=== PATIENT | female | born 1960 | race Caucasian/White ===

== ENCOUNTER 2018-11-07 08:27 | Inpatient (IN) ==
--- NOTE | 2018-10-23 15:20 | PAT Medication Instructions ---
Medication Instructions Date of Service October 23, 2018 Home Medications biotin 1 tab PO QAM cholecalciferol (vitamin D3) 2 tab PO QAM citalopram [Celexa] 20 mg PO QAM esomeprazole magnesium [Nexium] 40 mg PO QAM hydrochlorothiazide 25 mg PO QAM hydroxyzine HCl 25 mg PO QID PRN levothyroxine [Synthroid] 125 mcg PO QAM STOP taking 2 weeks before surgery (or as soon as possible if surgery is within 2 weeks) biotin 1 tab PO QAM DO NOT take the morning of surgery cholecalciferol (vitamin D3) 2 tab PO QAM hydrochlorothiazide 25 mg PO QAM Take morning of surgery With a small sip of water, OTHERWISE NOTHING TO EAT OR DRINK AFTER MIDNIGHT: citalopram [Celexa] 20 mg PO QAM esomeprazole magnesium [Nexium] 40 mg PO QAM hydroxyzine HCl 25 mg PO QID PRN (if needed) levothyroxine [Synthroid] 125 mcg PO QAM Other Notes If you have any questions please call us at [phone] or [phone] or [phone] or [phone]
--- NOTE | 2018-10-24 13:37 | Anesthesiology Consultation ---
Date of Service October 24, 2018 Assessment & Plan (1) Encounter for pre-operative examination: Plan: - PCP= 10/30/18= "appropriate risk for right knee surgery." Chart Review Chart Review: Acceptable Risk for Surgery and Patient seen in Pre Admission Testing Teaching & Discussion Pre-Anesthesia Teaching/Discussion Notes: Instructed NPO after midnight before surgery,except medications with 15 cc of water. Medication instructions provided according to the PAT guidelines. History Surgery Operation Date: 11/07/18 09:40 Proposed Procedures p Right Total Knee Revision Arthroplasty versus Articulated Cement Spacer - Reji Brenner MD Height/Weight Height: 5 ft 7 in Weight: 105.7 kg Allergies Allergy/AdvReac Type Severity Reaction Status Date / Time Penicillins Allergy Unknown RASH Verified 10/18/18 14:36 Sulfa (Sulfonamide Allergy Unknown RASH Verified 10/18/18 14:36 Antibiotics) Medications Home Medications Medication Instructions Recorded Confirmed Last Taken biotin 1 tab PO QAM 10/18/18 10/18/18 Unknown cholecalciferol (vitamin D3) 2 tab PO QAM 10/18/18 10/18/18 Unknown [Vitamin D3] citalopram [Celexa] 20 mg PO QAM 10/18/18 10/18/18 Unknown esomeprazole magnesium [Nexium] 40 mg PO QAM 10/18/18 10/18/18 Unknown hydrochlorothiazide 25 mg PO QAM 10/18/18 10/18/18 Unknown hydroxyzine HCl 25 mg PO QID PRN 10/18/18 10/18/18 Unknown levothyroxine [Synthroid] 125 mcg PO QAM 10/18/18 10/18/18 Unknown Past Medical History Medical History Anxiety Arthritis Bradycardia CHRONIC; ASYMPTOMATIC Depression GERD (gastroesophageal reflux disease) CONTROLLED Hypertension Hypothyroidism Obesity Past Surgical History Surgical History History of appendectomy History of total knee replacement RIGHT TKA= 04/28/15= SAB + PNB AT [facility] Hx of section x 3 Hx of colonoscopy Patient states emotional/depressed for the 3 weeks following prior right TKA. Past Anesthesia History No Hx of Anesthesia Complications and No Family Hx of Anesthesia Complications History of PONV No Motion Sickness Screening History of Motion Sickness: Yes (OCCASIONAL) Social History Smoking Status: Never smoker Do You Dip or Chew Tobacco: No Hx Alcohol Use: Yes Alcohol type: wine alcohol intake frequency: holidays/special occasions only Hx Substance Use: No substance use type: does not use Exercise / Class Metabolic Activity II 4-5 Yardwork/Stairs/Walk up hill Review of Systems Reflux controlled. Knee pain. Patient denies chest pain, shortness of breath, dyspnea on exertion,cough, wheezing, palpitations. Physical Exam Vital Signs VITALS BP 122/78 P 57 TEMP 97.8 SP02 96%RA RESP 18 Full neck and c-spine range of motion. Full TMJ range of motion. TMD 3 finger breaths Mallampati Score 2 Dentition: intact, caps on sides Lungs: clear throughout to auscultation Cardiac: regular rate and rhythm, no murmurs noted Spine: normal Carotid arteries: negative bruit Extremities: no edema Testing Electrocardiogram Date: 10/24/18 Findings: + SB @ (50) Chest X-Ray Date: 10/24/18 Findings: + NAD and + atherosclerosis of thoracic aorta Echocardiogram Date: 08/15/13 EF 55-60%. No RWMA. Mild AV thickening. No significant valvular disease. Diastolic filling pattern indicates impaired relaxation. Stress Test Date: 03/07/17 Type: exercise Exercise treadmill testing negative for angina pectoris or EKG evidence for myocardial ischemia. Exercise capacity good. 10.1 METS. 94%MPHR. Laboratory Results 10/24/18 13:51 10/24/18 13:51 Blood Type A Positive 10/24/18 13:51 Antibody Screen NEGATIVE 10/24/18 13:51 PT 10.6 Seconds (9.0-12.0) 10/24/18 13:51 INR 1.1 (0.9-1.1) 10/24/18 13:51 APTT 27.0 Seconds (21.0-31.0) 10/24/18 13:51 Hemoglobin A1c 5.2 % (4.5-5.6) 10/24/18 13:51 Urine Color Yellow 10/24/18 Unknown Urine Appearance Clear (Clear) 10/24/18 Unknown Urine pH 5.0 (4.5-7.5) 10/24/18 Unknown Ur Specific Elmer 1.017 (1.000-1.030) 10/24/18 Unknown Urine Protein Negative (Negative) 10/24/18 Unknown Urine Glucose (UA) Negative (Negative) 10/24/18 Unknown Urine Ketones Negative (Negative) 10/24/18 Unknown Urine Nitrite Negative (Negative) 10/24/18 Unknown Ur Leukocyte Esterase Negative (Negative) 10/24/18 Unknown 10/24/18 Unknown Urine Culture - Final Urine,Clean Catch No growth - less than 1,000 colonies/mL.
--- NOTE | 2018-10-24 14:13 | XRay Report ---
XR chest Pre-admission PA/Lat CLINICAL HISTORY: 58 years-old Female presenting with preoperative assessment. TECHNIQUE: PA and lateral views of the chest were obtained. COMPARISON: None. FINDINGS: Atherosclerosis of the aortic arch. Cardiac silhouette top normal in size. Lungs and pleural spaces c lear. Osseous structures normal. Upper abdomen normal. IMPRESSION: 1. No acute cardiopulmonary disease. Electronically signed by: Luke Topete M.D. 10/24/2018 2:11 PM
[2018-10-24 14:18] LABS: Basophils # (auto) 0.04 K/uL (0-0.2); Basophils % (auto) 0.5 %; Eosinophils # (auto) 0.24 K/uL (0-0.5); Eosinophils % (auto) 2.9 %; Hematocrit (blood only) 39.2 % (37-47); Hemoglobin 13.3 g/dL (12.0-16.0); Immature Granulocytes # (auto) 0.02 K/uL (0.00-0.02); Immature Granulocytes % (auto) 0.2 %; Lymphocytes # (auto) 2.62 K/uL (1.2-3.4); Lymphocytes % (auto) 31.4 %; Mean Corpuscular Hgb Conc 33.9 g/dL (32-36); Mean Corpuscular Volume 84.7 fL (80-100); Mean Platelet Volume 10.3 fL (7.4-10.4); Monocytes # (auto) 0.44 K/uL (0.11-0.59); Monocytes % (auto) 5.3 %; Neutrophils # (auto) 4.98 K/uL (1.4-6.5); Neutrophils % (auto) 59.7 %; Platelet Count 294 K/uL (130-400); RDW Coefficient of Variation 12.8 % (11.5-14.5); RDW Standard Deviation 39.2 fL (36.4-46.3); Red Blood Count 4.63 M/uL (4.2-5.4); White Blood Count 8.34 K/uL (4.8-10.8)
[2018-10-24 14:19] LABS: Estimated Average Glucose 103 mg/dl
[2018-10-24 14:24] LABS: BUN Creatinine Ratio 29.2 (10-20); Calcium 9.6 mg/dl (8.5-10.1); Creatinine Clr Calc Pharmacy 105.2 ml/min; Est GFR (African American) 106.2; Est GFR (Non-African American) 91.7; Potassium 3.6 mmol/L (3.5-5.1)
[2018-10-24 14:28] LABS: INR 1.1 (0.9-1.1); Prothrombin Time 10.6 Seconds (9.0-12.0)
[2018-10-24 14:46] LABS: Appearance Urine Clear (Clear); Bilirubin Urine Negative (Negative); Color Urine Yellow; Glucose Urine UA Negative (Negative); Ketones Urine Negative (Negative); Leukocyte Esterase Urine Negative (Negative); Nitrite Urine Negative (Negative); Protein Urine Negative (Negative); Specific Gravity Urine 1.017 (1.000-1.030); Urobilinogen Urine Negative (Negative)
--- NOTE | 2018-11-06 09:39 | History and Physical Report ---
DATE OF ADMISSION: 11/07/2018 CHIEF COMPLAINT: Right knee pain status post previous total knee arthroplasty. HISTORY OF PRESENT ILLNESS: The patient is a 58-year-old female approximately 3 years status post right total knee arthroplasty. She presented recently for increasing pain about the right knee. X-rays were concerning about possible loosening, particularly about the tibial component. She has some blood work, which showed a mildly elevated CRP. She had an aspiration, which was negative. She has a bone scan, which was suggestive of possible loosening about the tibial component. She is now scheduled for right total knee tibial component revision versus complete revision versus articulated antibiotic spacer. PAST MEDICAL HISTORY: Depression, hypothyroidism, acid reflux. PAST SURGICAL HISTORY: Right knee as above, x3. MEDICATIONS: Synthroid 125 mcg daily, hydrochlorothiazide 25 mg daily, esomeprazole 40 mg daily, citalopram 20 mg daily, hydroxyzine HCl 25 mg p.r.n., biotin 5000 mcg, vitamin D 2000 international units. ALLERGIES: PENICILLIN AND SULFA. SOCIAL HISTORY AND REVIEW OF SYSTEMS: Noncontributory. PHYSICAL EXAMINATION: GENERAL: Well-nourished, well-developed female, who appears stated age. HEENT: Normocephalic, atraumatic. Extraocular movements intact. Oropharynx pink and moist. NECK: Supple without adenopathy. LUNGS: Clear to auscultation bilaterally. HEART: Regular rate and rhythm. ABDOMEN: Soft, nontender, nondistended. EXTREMITIES: The upper extremities are within normal limits. The right knee has a neutral alignment. She has a well-healed midline incision from her previous arthroplasty. Her range of motion is from 0-120 degrees. X-RAYS: X-rays were reviewed. She has a Praneeth type knee in place. It is well aligned. There appears to be osteolysis, particularly about the tibial component. No obvious changes about the femoral or patellar components. Her bone scan was reviewed and shows some increased activity, particularly about the tibial component suggestive of loosening. ASSESSMENT: Painful right total knee arthroplasty, aseptic loosening, lesser chance of infectious process. PLAN: Risks versus benefits were discussed, consent was obtained. We will proceed with right total knee revision tibial component versus complete knee revision versus articulated antibiotic spacer as indicated.
[~2018-11-07 08:27] MED LIST: ACETAMINOPHEN 500 MG TAB PO SCH; BUPIVACAINE 0.5 % 5 MG/1 ML PF 10ML VIAL ONE; CLINDAMYCIN 600 MG/54 ML BAG IV SCH; FAMOTIDINE 20 MG TAB PO SCH; GABAPENTIN 300 MG x 2 PO SCH; ROPIVACAINE 0.5% 5 MG/ML 30 ML VIAL ONE; ROPIVACAINE 0.5% HCL/PF 150 MG, BUPIVACAINE 0.5% MPF 30 ML, EPINEPHrine 30MG/30ML (OR U... INFIL SCH; TRANEXAMIC ACID 1,000 MG **IV Intra-op IV SCH; TRANEXAMIC ACID 1,000 MG **IV Pre-op IV SCH; dexAMETHasone 4 MG TAB PO SCH
[2018-11-07] MEDS ORDERED: fentaNYL citrate 100 MCG/2 ML VIAL ONE (09:23)
[2018-11-07] MEDS ORDERED: MIDAZOLAM HCL 1 MG/ML 2ML VIAL ONE ×3 (09:23→11:07)
[2018-11-07] MEDS ORDERED: LIDOCAINE HCL 2% 2 ML VIAL/AMP(20MG/ML) INFIL ONE (09:24)
[2018-11-07] MEDS ORDERED: PROPOFOL IV EMULSION 10 MG/ML 20 ML VIAL IV ONE ×3 (09:24→12:39)
[2018-11-07] MEDS ORDERED: ONDANSETRON INJ 2 MG/ML 2 ML VIAL ONE (09:24)
[2018-11-07] MEDS: LR 500ML BOLUS, THEN 15ML/HR IV SCH ×3 (09:31→18:51)
--- NOTE | 2018-11-07 09:52 | History & Physical Bridge Note ---
Date of Service November 07, 2018 History & Physical Bridge Note I have examined the patient, reviewed the History & Physical and in the interval since the performance of the History & Physical I have noted the following changes of clinical significance: no changes noted
[2018-11-07] MEDS ORDERED: fentaNYL citrate 100 MCG/2 ML VIAL IV PRN (10:08)
[2018-11-07] MEDS ORDERED: ePHEDrine sulfate 50 MG/ML AMP IV PRN (10:08)
[2018-11-07] MEDS ORDERED: ATROPINE SULFATE 0.1 MG/ML 10ML SYR IV PRN (10:08)
[2018-11-07] MEDS ORDERED: ONDANSETRON INJ 2 MG/ML 2 ML VIAL IV PRN ×2 (10:08→15:17)
[2018-11-07] MEDS ORDERED: ORTHO JOINT ANESTHETIC ONE (10:12)
[2018-11-07] MEDS ORDERED: BACITRACIN INJ 50,000 UNIT VIAL ONE (10:12)
[2018-11-07] MEDS ORDERED: POVIDONE-IODINE OP SOLN 30 ML BTL ONE (10:12)
--- NOTE | 2018-11-07 13:56 | XRay Report ---
XR knee RT 2V routine HISTORY: 58 years-old Female Surgical Post Op right knee total joint arthroplasty. History of degene rative joint disease. COMPARISON: Knee radiographs 04/28/2015 TECHNIQUE: 2 views of the right knee FINDINGS: Status post revision of right knee total joint arthroplasty with placement of elongated tibial stem. Satisfactory alignment. No acute fracture or retained foreign body. Anterior midline skin miles are noted with expected postsurgical soft tissue swelling and deep tissue air. Surgical drainage cathete r noted. IMPRESSION: Right knee total joint arthroplasty demonstrates satisfactory alignment. The above report was generated using voice recognition software. It may contain grammatical, syntax o r spelling errors. Electronically signed by: Geovany Chiu M.D. 11/07/2018 1:54 PM
--- NOTE | 2018-11-07 14:56 | Anesthesiology Progress Note ---
Date of Service November 07, 2018 Anesthesia Post Procedure Vital Signs Vital Signs: Temp Pulse Pulse Resp BP Pulse Ox 11/07/18 14:50 37.0 C 68 19 121/81 97 11/07/18 14:40 37.0 C 68 19 121/81 97 11/07/18 14:30 61 14 123/82 96 11/07/18 14:20 67 14 120/92 98 11/07/18 14:10 60 16 120/83 95 11/07/18 14:00 65 15 126/86 97 11/07/18 13:50 65 17 136/85 97 11/07/18 13:40 70 15 133/75 95 11/07/18 13:30 70 20 125/84 98 11/07/18 13:23 37.0 C 74 17 128/77 99 11/07/18 09:29 36.7 C 60 18 137/78 94 Notes Mental Status: alert / awake / arousable Patient Amnestic to Procedure: Yes Nausea / Vomiting: adequately controlled Pain: adequately controlled Airway Patency, RR, SpO2: stable & adequate BP & HR: stable & adequate Hydration State: stable & adequate Neuraxial Anesthesia: was administered and sensory block is resolving Anesthetic Complications: no major complications apparent and Pt Satisfied with anesthetic care
[2018-11-07] MEDS ORDERED: MoRPHine SULFATE 2 MG/ML CARP IV PRN (15:17)
[2018-11-07] MEDS ORDERED: ALUMINUM/MAGNESIUM SUSP 30 ML UDC PO PRN (15:17)
[2018-11-07] MEDS ORDERED: MAGNESIUM HYDROXIDE SUSP 30 ML UDC PO PRN (15:17)
[2018-11-07] MEDS: CLINDAMYCIN 600 MG in DEXTROSE 5% 50 ML IV SCH (18:36)
[2018-11-07] MEDS: ACETAMINOPHEN 500 MG TAB PO SCH (20:59)
[2018-11-07] MEDS: SODIUM CHLORIDE 0.9% 1000ML 1,000 ML IV SCH (20:59)
[2018-11-07] MEDS: SENNA 8.6 MG TAB PO SCH (20:59)
[2018-11-07] MEDS: ASPIRIN 81 MG ECTAB PO SCH (20:59)
[2018-11-07] MEDS: DOCUSATE SODIUM 100 MG CAP PO SCH (20:59)
[2018-11-07] MEDS: OXYCODONE HCL IR 5 MG TAB (IMMEDIATE RELEASE) PO PRN (23:22)
[2018-11-08] MEDS: CLINDAMYCIN 600 MG in DEXTROSE 5% 50 ML IV SCH (03:19)
[2018-11-08] MEDS: LEVOTHYROXINE SODIUM 125 MCG TABLET PO SCH (05:18)
[2018-11-08] MEDS: ACETAMINOPHEN 500 MG TAB PO SCH ×3 (05:18→21:05)
[2018-11-08] MEDS: SODIUM CHLORIDE 0.9% 1000ML 1,000 ML IV SCH (05:21)
[2018-11-08 05:53] LABS: Hematocrit (blood only) 36.6 % (37-47); Hemoglobin 12.5 g/dL (12.0-16.0); Mean Corpuscular Hgb Conc 34.2 g/dL (32-36); Mean Corpuscular Volume 84.7 fL (80-100); Mean Platelet Volume 10.8 fL (7.4-10.4); Platelet Count 292 K/uL (130-400); RDW Coefficient of Variation 12.6 % (11.5-14.5); RDW Standard Deviation 38.6 fL (36.4-46.3); Red Blood Count 4.32 M/uL (4.2-5.4); White Blood Count 12.85 K/uL (4.8-10.8)
[2018-11-08 06:09] LABS: BUN Creatinine Ratio 26.5 (10-20); Calcium 8.7 mg/dl (8.5-10.1); Creatinine Clr Calc Pharmacy 92.4 ml/min; Est GFR (African American) 90.8; Est GFR (Non-African American) 78.3; Potassium 4.2 mmol/L (3.5-5.1)
--- NOTE | 2018-11-08 07:36 | Orthopedic Progress Note ---
Date of Service November 08, 2018 Assessment & Plan (1) Status post revision of total replacement of right knee: 58 yo female stable POD #1 s/p revision tibial component right TKA 1. Med management 2. DVT prophylaxis- ASA, SCDs 3. PT/OT 4. D/C planning- home w/ HH Subjective Pt resting comfortably in bed, pain controlled, denies complaints Physical Exam 2 Vital Signs (Past 24 Hours): Last Vital Signs Temp 36.7 C 11/08/18 07:09 Pulse 67 11/08/18 07:09 Resp 18 11/08/18 07:09 BP 118/78 11/08/18 07:09 Pulse Ox 92 11/08/18 07:09 Physical Exam: Toes mobile, N/V/I, dressing and drain in place Results & Data Laboratory Results 11/08/18 11/08/18 Range/Units 05:28 05:28 WBC 12.85 H (4.8-10.8) K/uL RBC 4.32 (4.2-5.4) M/uL Hgb 12.5 (12.0-16.0) g/dL Hct 36.6 L (37-47) % MCV 84.7 (80-100) fL MCH 28.9 (25-34) pg MCHC 34.2 (32-36) g/dL RDW Std Deviation 38.6 (36.4-46.3) fL RDW Coeff of Pipe 12.6 (11.5-14.5) % Plt Count 292 (130-400) K/uL MPV 10.8 H (7.4-10.4) fL Sodium 137 (136-145) mmol/L Potassium 4.2 (3.5-5.1) mmol/L Chloride 108 H (98-107) mmol/L Carbon Dioxide 26 (21-32) mmol/L Anion Gap 3.0 (3-11) BUN 22 H (7-18) mg/dl Creatinine 0.82 (0.6-1.2) mg/dl Est Cr Clr Drug Dosing 92.4 ml/min Est GFR ( Amer) 90.8 Est GFR (Non-Af Amer) 78.3 BUN/Creatinine Ratio 26.5 H (10-20) Glucose 125 H (70-99) mg/dl Calcium 8.7 (8.5-10.1) mg/dl
--- NOTE | 2018-11-08 07:49 | Anesthesiology Progress Note ---
Date of Service November 08, 2018 Anesthesia Post Procedure Vital Signs Vital Signs: Temp Pulse Pulse Pulse Resp BP Pulse Ox 11/08/18 07:09 36.7 C 67 18 118/78 92 11/08/18 03:06 36.7 C 79 16 113/71 93 11/08/18 00:24 36.7 C 67 16 120/75 93 11/07/18 18:00 36.8 C 66 22 118/80 97 11/07/18 17:09 36.7 C 61 16 111/73 95 11/07/18 16:08 36.7 C 59 L 16 122/86 99 11/07/18 15:38 36.6 C 58 L 14 125/85 97 11/07/18 14:50 63 16 116/77 97 11/07/18 14:40 37.0 C 68 19 121/81 97 11/07/18 14:30 61 14 123/82 96 11/07/18 14:20 67 14 120/92 98 11/07/18 14:10 60 16 120/83 95 11/07/18 14:00 65 15 126/86 97 11/07/18 13:50 65 17 136/85 97 11/07/18 13:40 70 15 133/75 95 11/07/18 13:30 70 20 125/84 98 11/07/18 13:23 37.0 C 74 17 128/77 99 11/07/18 09:29 36.7 C 60 18 137/78 94 Pain Intensity Right Knee: Pain Intensity: 2 Notes Mental Status: alert / awake / arousable and participated in evaluation Patient Amnestic to Procedure: Yes Nausea / Vomiting: adequately controlled Pain: adequately controlled Airway Patency, RR, SpO2: stable & adequate BP & HR: stable & adequate Hydration State: stable & adequate Neuraxial Anesthesia: was administered and sensory block resolved Anesthetic Complications: no major complications apparent and Pt Satisfied with anesthetic care
[2018-11-08] MEDS: DOCUSATE SODIUM 100 MG CAP PO SCH ×2 (08:19→21:05)
[2018-11-08] MEDS: CITALOPRAM 20 MG TAB PO SCH (08:19)
[2018-11-08] MEDS: ASPIRIN 81 MG ECTAB PO SCH ×2 (08:19→21:05)
[2018-11-08] MEDS: PANTOprazole 40 MG TAB PO SCH (08:19)
[2018-11-08] MEDS: MULTIVITAMIN TAB PO SCH (08:19)
[2018-11-08] MEDS: hydroCHLOROthiazide 25 MG TAB PO SCH (08:19)
[2018-11-08] MEDS: OXYCODONE HCL IR 5 MG TAB (IMMEDIATE RELEASE) PO PRN ×4 (10:39→23:25)
[2018-11-08] MEDS: SENNA 8.6 MG TAB PO SCH (21:05)
[2018-11-09] MEDS: OXYCODONE HCL IR 5 MG TAB (IMMEDIATE RELEASE) PO PRN ×2 (05:24→12:02)
[2018-11-09] MEDS: ACETAMINOPHEN 500 MG TAB PO SCH (05:25)
[2018-11-09] MEDS: LEVOTHYROXINE SODIUM 125 MCG TABLET PO SCH (05:26)
[2018-11-09] MEDS: MULTIVITAMIN TAB PO SCH (07:30)
[2018-11-09] MEDS: ASPIRIN 81 MG ECTAB PO SCH (07:30)
[2018-11-09] MEDS: DOCUSATE SODIUM 100 MG CAP PO SCH (07:30)
[2018-11-09] MEDS: CITALOPRAM 20 MG TAB PO SCH (07:30)
[2018-11-09] MEDS: PANTOprazole 40 MG TAB PO SCH (07:30)
[2018-11-09] MEDS: hydroCHLOROthiazide 25 MG TAB PO SCH ×2 (07:30→12:32)
--- NOTE | 2018-11-09 10:15 | Orthopedic Progress Note ---
Date of Service November 09, 2018 Assessment & Plan (1) Status post revision of total replacement of right knee: 58 yo female stable POD #2 s/p revision tibial component right TKA 1. Med management 2. DVT prophylaxis- ASA, SCDs 3. PT/OT 4. D/C planning- home w/ HH today Subjective pt sitting in chair comfortably. No N/V, Dizziness, chest pain, SOB, calf pain, pain well controlled Physical Exam 2 Vital Signs (Past 24 Hours): Last Vital Signs Temp 36.7 C 11/09/18 07:04 Pulse 67 11/09/18 07:04 Resp 18 11/09/18 07:04 BP 135/83 11/09/18 07:04 Pulse Ox 96 11/09/18 07:04 Physical Exam: Toes mobile, NVI. Calves soft nontender. Dressing in place. Prevena
--- NOTE | 2018-11-20 15:10 | Discharge Summary ---
CHIEF COMPLAINT: Right knee pain status post total knee arthroplasty. Please see complete history and physical examination. HOSPITAL COURSE: The patient underwent a right total knee tibial component revision without complication. She tolerated the procedure well and was discharged to recovery room in stable condition. Her postop course was relatively uneventful. Her postoperative pain was reasonably well controlled with a combination of spinal anesthesia, adductor canal block, intraoperative joint injection, IV, and oral pain medications. She was started on aspirin for DVT prophylaxis. She also utilized MARSHALL stockings and SCDs for additional prophylaxis. Her H and H was stable and did not require transfusion. Her surgical drain and dressings were changed on postoperative day 2. Her new surgical dressing will remain in place for approximately 7 days postoperative. She tolerated postop physical therapy reasonably well where she was ambulating and transferring appropriately. She was discharged home on postoperative day 2. She will continue her physical therapy as an outpatient. She will continue her aspirin for DVT prophylaxis and follow up in our office in approximately 10-14 days for initial postop evaluation.
--- NOTE | 2018-12-02 08:02 | Operative Report ---
DATE OF OPERATION: 11/07/2018 PREOPERATIVE DIAGNOSIS: Osteoarthritis, right knee. POSTOPERATIVE DIAGNOSIS: Osteoarthritis, right knee. PROCEDURE: Right total knee arthroplasty. SURGEON: Reji Brenner MD CARTOGRAPHY TEACHER: YANETH Ramachandran ANESTHESIA: Spinal. COMPLICATIONS: None. OPERATION AND FINDINGS: Following induction of spinal anesthesia, the patient's right leg was prepped and draped in the usual sterile manner. Limb was exsanguinated with an Esmarch bandage and tourniquet was inflated to 350 mmHg. A longitudinal incision was made anteriorly. Subcutaneous tissue was sharply dissected. Electrocautery was used for hemostasis. Prepatellar bursa was incised and median parapatellar incision was performed. Patella was everted and the knee was flexed. Fat pad was removed to aid in visualization and the anterior and posterior cruciate ligaments were removed. The medial face of the tibia was cleared of soft tissue first with a Bovie and a Gusman elevator. This tissue was retracted posteriorly using a blunt Hohmann. A Lanza retractor was used to expose the synovium above on the anterior aspect of the femur and this was removed down to bone. The PSI guide was placed on the distal femur and two pins were placed anteriorly and kept in position and two additional pins were placed distally and removed. The distal femoral cutting block was placed in position and the distal femoral cut was used in the +0 setting. Next, the cutting block was removed and the femoral size 4 block was placed in the distal end of the femur. Care was taken to ensure appropriate external rotation and feeler gauge was used to ensure no notching would occur. The femoral block was centered on the distal femur and in the medial and lateral direction and was fixed using two bone screws. The gold pins were then removed. The oscillating saw was used to create the bone cuts and the distal femoral cutting block was removed and the reciprocating saw was used to further trim the femoral cuts as well as a deep in the area for the trochlear groove. Next, posterior condyle remnants were removed. Following this, a meniscal clamp and knife were utilized to remove the anterior portion of both medial and lateral meniscus. The proximal tibia PSI guide was placed into position and the proximal tibial cutting guide was screwed into position. The extra medullary alignment guide was utilized to ensure appropriate alignment. The proximal tibia was cut and the proximal tibial cutting block was removed and this bone fragment was removed. The appropriate guide was used to perform the notch cut on the distal femur and a lamina aluminum boats assembler and a cochlear knife were utilized to finish both medial and lateral meniscectomies to remove any remnants of the posterior or anterior cruciate ligaments. Following this, the distal femoral component was impacted into position and blunt Scottie was used to sublux the tibia anteriorly. The proximal tibia was sized and a size 3 tibial tray was chosen as the size to be used. This was put into position and appropriate external rotation and a double check with extramedullary alignment guide was performed. The canal for the tibial stem was prepared first with a 17 mm drill and then the punch and a mallet and the trial tibial poly was placed. A tibial poly 11, size 17 was chosen the size to be used. It was brought to extension and the patella was prepared with the patellar reamer. A tibial stem 11 mm component was chosen the size to be used. The trial component was placed and knee was taken through a full range of motion and there was found to be no lateral subluxation of the tibia. No lateral release was required. The trials were all removed. The final components were obtained and assembled. Cement was mixed. The knee was thoroughly irrigated and the ortho mix was injected about the knee joint. The final components were cemented into position. After thoroughly suctioning and drying the bone ends, all excess cement was removed. The knee was held in extension while the cement hardened. The wound was irrigated and closed over a Hemovac drain. A #1 Vicryl was used to close the extensor mechanism. Subcutaneous tissues closed using 0 Dexon. Skin was closed with miles. Sterile dressing of Adaptic, 4 x 4's, sterile Webril, and Song was applied. The patient tolerated the procedure well. Due to the complex nature of the procedure, the entire surgery was performed with the operational assistance of Kristofer Red PA-C. The payroll assistant, under direct supervision, was involved in the actual performance of all aspects of the surgical procedure including hemostasis, tissue retraction and incision, instrument management, patient positioning, and wound closure. Mr. Red was essential through all portions of the case including positioning, prepping, draping, surgical assistance, wound closure, and dressing application. I attest to the content of the Intraoperative Record and any orders documented therein. Any exception s are noted below.
--- NOTE | 2018-12-04 10:36 | Operative Report ---
DATE OF OPERATION: 11/07/2018 PREOPERATIVE DIAGNOSIS: Aseptic loosening, right tibia. POSTOPERATIVE DIAGNOSIS: Aseptic loosening, right tibia. PROCEDURE: Right tibial revision. SURGEON: Reji Brenner MD SHOWROOM SALES CONSULTANT: YANETH Ramachandran ANESTHESIA: Spinal. COMPLICATIONS: None. DESCRIPTION OF PROCEDURE: Following this, a spinal anesthesia, the patient's right leg was prepped and draped in usual sterile manner. The limb was exsanguinated with an Esmarch bandage and tourniquet inflated to 300 mmHg. Longitudinal incision was reopened. Subcutaneous tissue was sharply dissected. Electrocautery was used for hemostasis. Median parapatellar incision was made and the patella was retracted laterally. A synovectomy was carried out using sharp dissection and the medial face of the tibia was cleared of soft tissue. A lateral snip was required to expose the tibia and this was brought into the wound and a tibial poly was removed. For some reason, they want me to say that this had a previous total knee, it is obvious, but patient had a previous total knee. The tibial component was removed. The intramedullary reamers were utilized. The proximal tibia was osteotomized with a cleanup cut and a size #3 tibial component with 11 mm stem was chosen and #17 mm poly. These components were assembled and cemented into position. The wound was thoroughly irrigated. Betadine soak was utilized. The lateral snip was repaired using #1 FiberWire. Median parapatellar incision was closed using #1 Vicryl, subcutaneous tissue was closed using 0 Dexon. Skin was closed with miles. Sterile dressing, Adaptic, 4 x 4's, sterile Webril, and double length Song was applied. The patient tolerated the procedure well. Mr. Red was utilized for all portions of the case including prepping, draping, fast food assistant restaurant manager, wound closure, and dressing application. I attest to the content of the Intraoperative Record and any orders documented therein. Any exception s are noted below.
== END 2018-11-09 13:03 | disposition home health service (06) | DRG 468 ==
LOC: ASU 08:27 → 3E 13:30